=== PATIENT | female | born 1990 ===

== ENCOUNTER 2017-02-25 11:35 | Day surgery (SDC) | payer MEDICAID ==
--- NOTE | 2017-02-25 11:24 | PDANEPAE ---
ANE History of Present Illness 26 year old female with right ankle fracture ANE Past Medical History Past Medical History: ECT for depression/anxiety - Neurological & Psychiatric Hx Hx Neurological and Psychiatric Disorders: Yes ANE Review of Systems Review of Systems: No URI/fever x2 weeks - Systems Constitutional: Reports: no symptoms Cardiac: Reports: no symptoms Respiratory: Reports: no symptoms Gastrointestinal: Reports: no symptoms ANE Patient History - Allergies Allergies/Adverse Reactions: No Known Allergies Allergy (Unverified 02/25/17 12:05) - Anes Hx Anes Hx: post operative nausea (after ECT treatment. Responded to Reglan.) - Smoking Hx Smoking Status: Never smoked Marijuana use: No - Alcohol Use Alcohol Use: Occasionally - Family Anes Hx Family Anes Hx: neg - N/A ANE Physical Exam - Airway Neck exam: FROM Mallampati Score: Class 2 Mouth exam: normal dental/mouth exam - Pulmonary Pulmonary: no respiratory distress - Cardiovascular Cardiovascular: regular rate and rhythym - ASA Status ASA Status: II ANE Anesthesia Plan Anesthesia Plan: GA w LMA [facility] Anesthesia: popliteal SNB
[2017-02-25] MEDS ORDERED: fentaNYL 100 MCG/2 ML INJ ONE (11:47)
[2017-02-25] MEDS ORDERED: ceFAZolin 2 GM/DEXTROSE 100 ML IV ONE (12:05)
--- NOTE | 2017-02-25 12:07 | PDGENHP ---
History & Physical Chief Complaint: R ankle fx History of Present Illness: fell sustiaing R ankle fx Pertinent Past, Social, Family History: depression Relevant Physical Exam: r ankle in splint. nvi in toes Cardiorespiratory Assessment: heart rrr. lungs clear. OR for ORIF of R ankle
[2017-02-25] MEDS ORDERED: LIDOCAINE 1% 2 ML INJ ONE (12:35)
[2017-02-25] MEDS ORDERED: PROPOFOL/EMULSION 500 MG/50 ML BOTTLE IV ONE (13:08)
[2017-02-25] MEDS ORDERED: LIDOCAINE 2% 5 ML SDV ONE (13:09)
[2017-02-25] MEDS ORDERED: BUPIVACAINE 0.5% 30 ML SDV ONE (13:24)
[2017-02-25] MEDS ORDERED: ONDANSETRON 4 MG/2 ML VIAL IVP PRN (14:15)
[2017-02-25] MEDS ORDERED: HYDROCODONE/APAP 5/325 TAB PO PRN (14:15)
[2017-02-25] MEDS ORDERED: fentaNYL 100 MCG/2 ML INJ IVP PRN (14:15)
[2017-02-25] MEDS ORDERED: NALOXONE HCL 0.4 MG/ML INJ IVP PRN (14:15)
[2017-02-25] MEDS ORDERED: ACETAMINOPHEN 500 MG TAB PO PRN (14:15)
[2017-02-25] MEDS ORDERED: D5W LR 500 ML IV PRN (14:15)
--- NOTE | 2017-02-25 14:35 | POSTOPPROG ---
Post Op Note Date of Operation: 02/25/17 Surgeon: Gadiel Samuels Learning Development Specialist: Bhavna Anesthesiologist: Mya Pre-op Diagnosis: R lateral fx Post-op Diagnosis: R lateral fx Indication: fx Procedure: R orif Inf/Abcess present in the surg proc area at time of surgery?: No EBL: Minimal
[2017-02-25 15:09] VITALS: TEMP 98.6
[2017-02-25 15:10] VITALS: RESP 15
[2017-02-25 15:53] VITALS: BP 106/71; PULSE 66; O2SAT 95
--- NOTE | 2017-02-26 01:47 | GOP ---
[f rep st] OPERATIVE REPORT DATE OF OPERATION: 02/25/2017 SURGEON: Gadiel Samuels MD STEM FRAZER: Michael Huggins SA ANESTHESIA: General with popliteal block. PREOPERATIVE DIAGNOSIS: Right lateral malleolus fracture. POSTOPERATIVE DIAGNOSIS: Right lateral malleolus fracture. PROCEDURE PERFORMED: Open reduction and internal fixation, right lateral malleolus. FINDINGS: SPECIMENS: None. ESTIMATED BLOOD LOSS: 5 mL. INDICATIONS: This is a 26-year-old female with significant displaced lateral malleolus fracture. I counseled her on the risks and benefits of operative intervention, including nerve injury, stiffnes s, nonunion, malunion, refracture, need for revision, need for hardware removal, and she elected to proceed. Informed consent obtained. All questions were answered. She was marked preoperatively. DESCRIPTION OF PROCEDURE: She was taken to the operating suite. Anesthesia was induced. A block w as administered per Anesthesia. She was given 2 g of Ancef, sterilely prepped and draped in normal fashion. A timeout was performed, verifying site, side, location, and there was agreement by the te am. Esmarch was utilized, tourniquet was inflated. Incision was made in the lateral malleolus. The fracture was widely displaced. I dissected down to this, protecting neurovascular structures. I debrided the fracture site. I was able to anatomical ly reduce this and held this with clamps and the K-wire. I placed a hook plate over this and miguel angel t this down to bone. I placed a cortical screw proximally, locking screws distally, and more cortic al screws proximally. I removed the wires and the clamps, took final x-rays that showed good reduct io. The clinical reduction looked excellent, and she had good range of motion. Irrigated and closed her with 0 Vicryl, 2-0 Vicryl, 3-0 Monocryl, and Dermabond. She was taken to P ACU in a sterile dressing and splint in stable condition. IMPLANTS: IMPLANTS: Arthrex lateral hook plate and screws. COMPLICATIONS: None. DRAINS: None. CONDITION: Stable. /[id number]/MODL
== END 2017-02-25 15:43 | disposition home or self-care (01) ==
LOC: FSGY 11:35
PROVIDERS: ATTEND Orthopaedic Surgery
PROC: 0QSJ04Z Reposition Right Fibula with Internal Fixation Device, Open Approach (ICD-10-PCS; principal; 2017-02-25 13:00)
DX: S82.61XA Displaced fracture of lateral malleolus of right fibula, initial encounter for closed fracture (principal); W17.89XA Other fall from one level to another, initial encounter; Y93.31 Activity, mountain climbing, rock climbing and wall climbing; Y92.828 Other wilderness area as the place of occurrence of the external cause
CPT/HCPCS: 27792; C1769; C1713; J0690; J2704; J3010